=== PATIENT | male | born 1985 | race Caucasian/White ===

== ENCOUNTER 2016-08-09 10:54 | Emergency (ER) | payer SELFPAY ==
[~2016-08-09] VITALS: Ht 188 cm; Wt 90.7 kg
[2016-08-09 11:44] LABS: BASO # 0.1 x10^3/uL (0.0-0.2); BASO % 1 % (0-3); EOS # 0.1 x10^3/uL (0.0-0.7); EOS % 1 % (0-3); HEMATOCRIT 47.6 % (39.0-53.0); HEMOGLOBIN 16.3 g/dL (13.0-17.5); LYMPH # 1.5 x10^3/uL (1.0-4.8); LYMPH % 13 % (24-48); MEAN CORPUSCULAR HEMOGLOBIN 33 pg (25-35); MEAN CORPUSCULAR HGB CONC 34 g/dL (31-37); MEAN CORPUSCULAR VOLUME 96 fL (79-100); MONO # 0.9 x10^3/uL (0.0-1.1); MONO % 8 % (0-9); NEUT % 78 % (31-73); PLATELET COUNT 251 x10^3/uL (140-400); RED BLOOD COUNT 4.97 x10^6/uL (4.30-5.70); RED CELL DISTRIBUTION WIDTH 13.4 % (11.5-14.5); WHITE BLOOD COUNT 11.6 x10^3/uL (4.0-11.0)
[2016-08-09 11:53] LABS: ALBUMIN 4.1 g/dL (3.4-5.0); ALK PHOS 86 U/L (46-116); ALT (SGPT) 38 U/L (16-63); ANION GAP 8 (6-14); AST (SGOT) 49 U/L (15-37); BLOOD UREA NITROGEN 10 mg/dL (8-26); BUN/CREATININE RATIO 10 (6-20); CALCIUM 8.8 mg/dL (8.5-10.1); CARBON DIOXIDE 27 mmol/L (21-32); CHLORIDE 99 mmol/L (98-107); GFR 86.1; GLUCOSE 122 mg/dL (70-99); PHENY 12.3 mcg/mL (10.0-20.0); POTASSIUM 3.8 mmol/L (3.5-5.1); SODIUM 134 mmol/L (136-145); TOTAL BILIRUBIN 0.7 mg/dL (0.2-1.0); TOTAL PROTEIN 8.4 g/dL (6.4-8.2)
[2016-08-09] MEDS ORDERED: IV NORMAL SALINE 50ML 50 ML ONE (13:12)
[2016-08-09] MEDS ORDERED: FOSPHENYTOIN 500 MG/10 ML VIAL IV ONE (13:12)
[2016-08-09] MEDS: FOSPHENYTOIN 500 MG in IV NORMAL SALINE 50ML 50 ML IV ONE (13:15)
--- NOTE | 2016-08-09 14:15 | ACF ---
Admission Criteria Forms SEIZURE Clinical Indications for Admission to Inpatient Care (Place 'X' for any and all applicable criteria): Admission is indicated for seizure and ANY ONE of the following(1)(2)(3)(4)(5): [x]I. Inpatient admission required rather than observation care (Also use Seizure: Observation Care Criteria as appropriate) because of ANY ONE of the following: [ ]a) Altered mental status that is severe or persistent [ ]b) New focal neurologic deficit that is severe or persistent [ ]c) Metabolic disorder (eg, hypoglycemia, hyponatremia) that is severe or persistent [x]d) Recurrent seizure [ ]e) Outpatient antiseizure regimen cannot be established (eg , patient cannot tolerate medication, initiation requires inpatient care) [ ]f) Need for ongoing intravenous infusion of antiseizure medication [ ]g) Cardiac arrhythmias of immediate concern [ ]h) Cerebral bleeding, hydrocephalus, or vasospasm monitoring (14) [ ]i) Increased intracranial pressure or cerebral edema monitoring (15) [ ]j) Other treatment or monitoring requiring inpatient admission [ ]II. Status epilepticus [A] or repetitive seizures not controlled with emergent treatment (6)(8) [ ]III. Brain disorder (eg, tumor, edema, and hydrocephalus) that requiring monitoring or intervention available only at inpatient level of care. [ ]IV. Brain insult (eg, severe trauma, stroke, drug toxicity, or withdrawal) that requires monitoring or intervention available only at inpatient level of care (10)(11) Extended stay beyond goal length of stay may be needed for (22) [ ]a) Complications of status epilepticus [ ]b) Refractory status epilepticus [ ]c) Etiology-specific therapy for conditions such as [employer] infection, head injury,eclampsia, severe metabolic abnormalities, and brain tumor [ ]d) Residual neurologic damage, [ ]e) Initiation of significant change to anticonvulsant treatment [ ]f) Older patients (65 years or older) [ ]g) Patient requiring intubation (eg, to protect airway) The original [employer] content created by [employer] has been revised. The portions of the content which have been revised are identified through the use of italic text or in bold, and [facility] [employer] has neither reviewed nor approved the modified material. All other unmodified content is copyright [facility] [employer]. Please see references footnoted in the original [facility] edition 2016 Admission Criteria Met?: Yes COLLIN ETIENNE Aug 09, 2016 14:15
[2016-08-09 15:00] VITALS: BP 141/80
--- NOTE | 2016-08-09 15:19 | ED.ADGEN ---
Past History Past Medical History: Seizure Past Surgical History: No Surgical History Alcohol Use: None Drug Use: None Adult General Chief Complaint Chief Complaint Seizure episodes HPI HPI Patient is a 31-year-old male with history of seizure disorder who presents with multiple self-limited, brief grand mal seizures in the past 24 hours. She was on Dilantin 3 times daily and denies missed doses. Denies recent illness, alcohol and drug abuse. Reports being under increased workplace stress and possible dehydration. 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 He is currently asymptomatic in the emergency department. His epilepsy is managed by his PCP, Dr. Rousseau. He has not required dictation adjustment over 1 year. Review of Systems Review of Systems ROS as per HPI. Current Medications Current Medications Current Medications Medications (Trade) Dose Ordered Sig/Broderick Start Time Stop Time Status Last Admin Dose Admin Fosphenytoin Sodium (Cerebyx) 500 mg STK-MED ONCE 08/09/16 13:12 08/09/16 13:13 DC Fosphenytoin Sodium 500 mg/ Sodium Chloride 60 ml @ 240 mls/hr 1X ONCE 08/09/16 13:15 08/09/16 13:29 DC 08/09/16 13:15 240 MLS/HR Sodium Chloride (Iv Sodium Chloride 0.9% 50ml) 50 ml @ As Directed STK-MED ONCE 08/09/16 13:12 08/09/16 13:13 DC Allergies Allergies Allergies Coded Allergies Type Severity Reaction Last Updated Verified No Known Drug Allergies 08/09/16 No Physical Exam Physical Exam Constitutional: Well developed, well nourished, no acute distress, non-toxic appearance. HENT: Normocephalic, atraumatic, bilateral external ears normal, oropharynx moist, no oral exudates, nose normal. Eyes: PERRLA, EOMI. Neck: Normal range of motion. Cardiovascular:Heart rate regular rhythm, no murmur. Lungs & Thorax: Bilateral breath sounds clear to auscultation. Abdomen: Bowel sounds normal, soft, no tenderness. Skin: Warm, dry, no erythema. Back: No tenderness. Extremities: No tenderness. Neurologic: Alert and oriented X 3, normal motor function, normal sensory function, no focal deficits noted. Psychologic: Affect normal, judgement normal, mood normal. Current Patient Data Vital Signs Vital Signs Date Time Temp Pulse Resp B/P Pulse Ox O2 Delivery O2 Flow Rate FiO2 08/09/16 11:05 98.6 78 16 99 Room Air Lab Results Laboratory Tests Test 08/09/16 11:20 White Blood Count 11.6x10^3/uL (4.0-11.0) H Red Blood Count 4.97x10^6/uL (4.30-5.70) Hemoglobin 16.3g/dL (13.0-17.5) Hematocrit 47.6% (39.0-53.0) Mean Corpuscular Volume 96fL (79-100) Mean Corpuscular Hemoglobin 33pg (25-35) Mean Corpuscular Hemoglobin Concent 34g/dL (31-37) Red Cell Distribution Width 13.4% (11.5-14.5) Platelet Count 251x10^3/uL (140-400) Neutrophils (%) (Auto) 78% (31-73) H Lymphocytes (%) (Auto) 13% (24-48) L Monocytes (%) (Auto) 8% (0-9) Eosinophils (%) (Auto) 1% (0-3) Basophils (%) (Auto) 1% (0-3) Neutrophils # (Auto) 9.0x10^3uL (1.8-7.7) H Lymphocytes # (Auto) 1.5x10^3/uL (1.0-4.8) Monocytes # (Auto) 0.9x10^3/uL (0.0-1.1) Eosinophils # (Auto) 0.1x10^3/uL (0.0-0.7) Basophils # (Auto) 0.1x10^3/uL (0.0-0.2) Sodium Level 134mmol/L (136-145) L Potassium Level 3.8mmol/L (3.5-5.1) Chloride Level 99mmol/L (98-107) Carbon Dioxide Level 27mmol/L (21-32) Anion Gap 8 (6-14) Blood Urea Nitrogen 10mg/dL (8-26) Creatinine 1.0mg/dL (0.7-1.3) Estimated GFR (Cockcroft-Gault) 86.1 BUN/Creatinine Ratio 10 (6-20) Glucose Level 122mg/dL (70-99) H Calcium Level 8.8mg/dL (8.5-10.1) Total Bilirubin 0.7mg/dL (0.2-1.0) Aspartate Amino Transferase (AST) 49U/L (15-37) H Alanine Aminotransferase (ALT) 38U/L (16-63) Alkaline Phosphatase 86U/L (46-116) Total Protein 8.4g/dL (6.4-8.2) H Albumin 4.1g/dL (3.4-5.0) Albumin/Globulin Ratio 1.0 (1.0-1.7) Phenytoin (Dilantin) Level 12.3mcg/mL (10.0-20.0) Phenytoin Last Dose Date Unk Phenytoin Last Dose Time Unk EKG EKG ]KG: Radiology/Procedures Radiology/Procedures [] Impressions: Multiple seizures Course & Med Decision Making Course & Med Decision Making Pertinent Labs and Imaging studies reviewed. (See chart for details) [Patient therapeutic on Dilantin. Additional Dilantin given. Labs are logic evaluation otherwise normal. Recommendations are to continue Dilantin follow-up with PCP and/or neurologist for further management. Courtesy work note provided. Return precautions reviewed.] Final Impression Final Impression [#1 seizure disorder] Problems: Dragon Disclaimer Dragon Disclaimer This electronic medical record was generated, in whole or in part, using a voice recognition dictation system. CHRISTOPHER MAYO DO Aug 09, 2016 15:18
== END 2016-08-09 15:10 | disposition home or self-care (01) ==
LOC: ER 10:54
DX: G40.909 Epilepsy, unspecified, not intractable, without status epilepticus (principal)
CPT/HCPCS: 36415; 80053; 80185; 85027; 96365; 99284; Q2009

== ENCOUNTER → 2016-09-05 | Outpatient (CLI) | payer SELFPAY ==
[2016-08-09 15:00] VITALS: BP 141/80
[2016-09-05 10:49] LABS: PHENY 11.2 mcg/mL (10.0-20.0)
== END | disposition home or self-care (01) ==
LOC: LAB 09:46
PROVIDERS: ATTEND Psychiatry & Neurology Neurology
DX: R56.9 Unspecified convulsions (principal)
CPT/HCPCS: 36415; 80185

== ENCOUNTER 2016-10-24 23:24 | Emergency (ER) | payer SELFPAY ==
[~2016-10-24] VITALS: Ht 188 cm; Wt 131.5 kg
--- NOTE | 2016-10-24 23:52 | PHYS DOC ---
General Chief Complaint: SEIZURE Stated Complaint: SEIZURE Time Seen by MD: 23:26 Source: patient, family Exam Limitations: no limitations Problems: History of Present Illness Initial Comments Patient is a 31-year-old male brought to the ED by his mom for breakthrough seizure. Patient has history of epilepsy, he has been stable on his seizure medications for several years before experiencing a breakthrough seizure August 09 at this year. Patient was evaluated in the emergency department found to be subtherapeutic on Dilantin, he was discharged home to follow up with his doctor as an outpatient. Patient follows with Dr. Rousseau as his primary care physician, Dr. Rousseau had been managing his seizure medications however he was referred to Dr. Hoyt neurologist after his last breakthrough seizure. After evaluation Dr. Hoyt increased his Dilantin to 1000 mg daily at bedtime. No further seizures or other issues up until this evening. Patient does admit that he had basically a missed dose of Dilantin night before last. He took the dose much later than normal and says in the past even early or late dosing of Dilantin because breakthrough seizures. His mom says that at 7 PM tonight the patient has small seizure and at 10:30 while sleeping he had a grand mal. The patient denies incontinence he denies headache or confusion no muscle aches. He denies recent illness no focal weakness or travel insect or tick bites he denies alcohol and drug abuse. In the emergency department no headache or body aches asymptomatic. Timing/Duration: other Severity: moderate Modifying Factors: improves with medication Associated Symptoms: seizure Allergies: Coded Allergies: No Known Drug Allergies (Unverified , 08/09/16) Past Medical History Medical History: other (seizures, hydrocephalus, hypertension) Surgical History: noncontributory Social History Smoker: quit greater than 1 year Alcohol: none Drugs: none Review of Systems Constitutional: denies chills, denies diaphoresis, denies fever EENTM: denies eye pain, denies tearing, denies ear pain, denies ear discharge, denies nose pain, denies throat pain, denies mouth pain Respiratory: denies cough, denies shortness of breath, denies wheezing Cardiovascular: denies chest pain, denies palpitations Gastrointestinal: denies abdominal pain, denies nausea, denies vomiting Genitourinary: denies frequency, denies hematuria Musculoskeletal: denies back pain, denies joint swelling, denies neck pain Psychiatric/Neurological: see HPI Physical Exam General Appearance: WD/WN, no apparent distress, obese Eyes: bilateral eye normal inspection, bilateral eye PERRL, bilateral eye EOMI Ear, Nose, Throat: hearing grossly normal, normal ENT inspection, normal pharynx Neck: non-tender, supple Respiratory: normal breath sounds, no respiratory distress Cardiovascular: normal peripheral pulses, regular rate, rhythm Back: no CVA tenderness, no vertebral tenderness Extremities: non-tender, normal inspection 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 No new or changing symptoms. Pt/mom express agreement/understanding with treatment plan. Departure Time of Disposition: 00:26 Disposition: 01 HOME, SELF-CARE Diagnosis: Breakthru Seizure Condition: STABLE Patient Instructions: Seizure, Adult, [id number] Additional Instructions: Rest, no strenuous activity. No driving, operating machinery, or swimming alone until cleared by your doctor. Continue current meds. Aggressive hydration with gatorade, water. Follow up with Dr Hoyt or Dr Stevenson in 2-3 days for recheck. Return to ED with new or changing symptoms. IRENA BELTRE DO Oct 24, 2016 23:52
[2016-10-24] MEDS ORDERED: FOSPHENYTOIN 500 MG/10 ML VIAL IV ONE (23:57)
[2016-10-24] MEDS ORDERED: IV NORMAL SALINE 50ML 50 ML ONE (23:57)
[2016-10-25] MEDS ORDERED: FOSPHENYTOIN 500 MG in IV NORMAL SALINE 50ML 50 ML IV ONE ×2
[2016-10-25 00:06] LABS: BASO # 0.1 x10^3/uL (0.0-0.2); BASO % 1 % (0-3); EOS # 0.3 x10^3/uL (0.0-0.7); EOS % 3 % (0-3); HEMATOCRIT 41.2 % (39.0-53.0); HEMOGLOBIN 14.8 g/dL (13.0-17.5); LYMPH % 20 % (24-48); MEAN CORPUSCULAR HEMOGLOBIN 33 pg (25-35); MEAN CORPUSCULAR HGB CONC 36 g/dL (31-37); MEAN CORPUSCULAR VOLUME 93 fL (79-100); MONO # 1.1 x10^3/uL (0.0-1.1); MONO % 12 % (0-9); NEUT # 6.4 x10^3uL (1.8-7.7); NEUT % 65 % (31-73); PLATELET COUNT 211 x10^3/uL (140-400); RED BLOOD COUNT 4.42 x10^6/uL (4.30-5.70); RED CELL DISTRIBUTION WIDTH 13.3 % (11.5-14.5); WHITE BLOOD COUNT 9.9 x10^3/uL (4.0-11.0)
[2016-10-25 00:17] LABS: ANION GAP 8 (6-14); BLOOD UREA NITROGEN 8 mg/dL (8-26); CALCIUM 8.5 mg/dL (8.5-10.1); CARBON DIOXIDE 29 mmol/L (21-32); CHLORIDE 99 mmol/L (98-107); GFR 86.1; GLUCOSE 124 mg/dL (70-99); POTASSIUM 3.8 mmol/L (3.5-5.1); SODIUM 136 mmol/L (136-145)
[2016-10-25 00:27] VITALS: BP 150/87
== END 2016-10-25 00:40 | disposition home or self-care (01) ==
LOC: ER 23:24
DX: G40.89 Other seizures (principal); I10 Essential (primary) hypertension; Z87.891 Personal history of nicotine dependence
CPT/HCPCS: 36415; 80048; 80185; 85027; 96365; 99284; Q2009

== ENCOUNTER 2017-09-18 13:44 | Emergency (ER) | payer SELFPAY ==
[~2017-09-18] VITALS: Ht 188 cm; Wt 130.0 kg
[2017-09-18 14:31] LABS: BASO # 0.1 x10^3/uL (0.0-0.2); BASO % 1 % (0-3); EOS # 0.1 x10^3/uL (0.0-0.7); EOS % 1 % (0-3); HEMATOCRIT 46.5 % (39.0-53.0); HEMOGLOBIN 15.9 g/dL (13.0-17.5); LYMPH # 1.6 x10^3/uL (1.0-4.8); LYMPH % 12 % (24-48); MEAN CORPUSCULAR HEMOGLOBIN 33 pg (25-35); MEAN CORPUSCULAR HGB CONC 34 g/dL (31-37); MEAN CORPUSCULAR VOLUME 96 fL (79-100); MONO # 0.9 x10^3/uL (0.0-1.1); MONO % 7 % (0-9); NEUT # 10.4 x10^3uL (1.8-7.7); NEUT % 79 % (31-73); PLATELET COUNT 266 x10^3/uL (140-400); RED BLOOD COUNT 4.85 x10^6/uL (4.30-5.70); WHITE BLOOD COUNT 13.2 x10^3/uL (4.0-11.0)
[2017-09-18 14:40] LABS: ALBUMIN 3.8 g/dL (3.4-5.0); ALBUMIN/GLOBULIN RATIO 0.9 (1.0-1.7); ALK PHOS 81 U/L (46-116); ALT (SGPT) 36 U/L (16-63); ANION GAP 10 (6-14); AST (SGOT) 33 U/L (15-37); BLOOD UREA NITROGEN 9 mg/dL (8-26); BUN/CREATININE RATIO 9 (6-20); CALCIUM 8.7 mg/dL (8.5-10.1); CARBON DIOXIDE 27 mmol/L (21-32); CHLORIDE 99 mmol/L (98-107); GFR 85.5; GLUCOSE 136 mg/dL (70-99); PHENY 14.4 mcg/mL (10.0-20.0); POTASSIUM 3.9 mmol/L (3.5-5.1); SODIUM 136 mmol/L (136-145); TOTAL BILIRUBIN 0.5 mg/dL (0.2-1.0); TOTAL PROTEIN 7.9 g/dL (6.4-8.2)
--- NOTE | 2017-09-18 14:46 | PHYS DOC ---
Past History Past Medical History: Seizure, Other Past Surgical History: No Surgical History Alcohol Use: None Drug Use: None Adult General Chief Complaint Chief Complaint: SEIZURE HPI HPI 32-year-old male resents with seizures at home. The patient has known seizures. He is on Dilantin. His family and the patient reported he had 3 seizures yesterday and 3 today. These seizures usually have hand movement, but sometimes mild tonic-clonic movement. He is postictal for a period of time and then returns to baseline. They brought him today because they were concerned he would continue to have them and that his phenytoin level is not adequate. It was increased about 3 months ago. He has been outside a lot and has a lot of sun exposure. He is trying to stay hydrated. Denies alcohol or drug use. He has no fever or chills. He has no other complaints. Review of Systems Review of Systems Constitutional: Denies fever or chills [] Eyes: Denies change in visual acuity, redness, or eye pain [] HENT: Denies nasal congestion or sore throat [] Respiratory: Denies cough or shortness of breath [] Cardiovascular: No additional information not addressed in HPI [] GI: Denies abdominal pain, nausea, vomiting, bloody stools or diarrhea [] : Denies dysuria or hematuria [] Musculoskeletal: Denies back pain or joint pain [] Integument: Denies rash or skin lesions, significant sun exposure [] Neurologic: Denies headache, focal weakness or sensory changes, 3 seizures today [] Endocrine: Denies polyuria or polydipsia [] All other systems were reviewed and found to be within normal limits, except as documented in this note. Allergies Allergies Allergies Coded Allergies Type Severity Reaction Last Updated Verified No Known Drug Allergies 08/09/16 No Physical Exam Physical Exam Constitutional: Well developed, well nourished, no acute distress, non-toxic appearance. [] HENT: Normocephalic, atraumatic, bilateral external ears normal, oropharynx moist, no oral exudates, nose normal. [] Eyes: PERRLA, EOMI, conjunctiva normal, no discharge. [] Neck: Normal range of motion, no tenderness, supple, no stridor. [] Cardiovascular:Heart rate regular rhythm, no murmur [] Lungs & Thorax: Bilateral breath sounds clear to auscultation [] Abdomen: Bowel sounds normal, soft, no tenderness, no masses, no pulsatile masses. [] Skin: Warm, dry, no erythema, no rash. darkly tanned skin [] Back: No tenderness, no CVA tenderness. [] Extremities: No tenderness, no cyanosis, no clubbing, ROM intact, no edema. [] Neurologic: Alert and oriented X 3, normal motor function, normal sensory function, no focal deficits noted. [] Psychologic: Affect normal, judgement normal, mood normal. [] Current Patient Data Lab Results Laboratory Tests Test 09/18/17 13:55 White Blood Count 13.2 x10^3/uL (4.0-11.0) H Red Blood Count 4.85 x10^6/uL (4.30-5.70) Hemoglobin 15.9 g/dL (13.0-17.5) Hematocrit 46.5 % (39.0-53.0) Mean Corpuscular Volume 96 fL (79-100) Mean Corpuscular Hemoglobin 33 pg (25-35) Mean Corpuscular Hemoglobin Concent 34 g/dL (31-37) Red Cell Distribution Width 14.0 % (11.5-14.5) Platelet Count 266 x10^3/uL (140-400) Neutrophils (%) (Auto) 79 % (31-73) H Lymphocytes (%) (Auto) 12 % (24-48) L Monocytes (%) (Auto) 7 % (0-9) Eosinophils (%) (Auto) 1 % (0-3) Basophils (%) (Auto) 1 % (0-3) Neutrophils # (Auto) 10.4 x10^3uL (1.8-7.7) H Lymphocytes # (Auto) 1.6 x10^3/uL (1.0-4.8) Monocytes # (Auto) 0.9 x10^3/uL (0.0-1.1) Eosinophils # (Auto) 0.1 x10^3/uL (0.0-0.7) Basophils # (Auto) 0.1 x10^3/uL (0.0-0.2) Sodium Level 136 mmol/L (136-145) Potassium Level 3.9 mmol/L (3.5-5.1) Chloride Level 99 mmol/L (98-107) Carbon Dioxide Level 27 mmol/L (21-32) Anion Gap 10 (6-14) Blood Urea Nitrogen 9 mg/dL (8-26) Creatinine 1.0 mg/dL (0.7-1.3) Estimated GFR (Cockcroft-Gault) 85.5 BUN/Creatinine Ratio 9 (6-20) Glucose Level 136 mg/dL (70-99) H Calcium Level 8.7 mg/dL (8.5-10.1) Total Bilirubin 0.5 mg/dL (0.2-1.0) Aspartate Amino Transferase (AST) 33 U/L (15-37) Alanine Aminotransferase (ALT) 36 U/L (16-63) Alkaline Phosphatase 81 U/L (46-116) Total Protein 7.9 g/dL (6.4-8.2) Albumin 3.8 g/dL (3.4-5.0) Albumin/Globulin Ratio 0.9 (1.0-1.7) L Phenytoin (Dilantin) Level 14.4 mcg/mL (10.0-20.0) Phenytoin Last Dose Date 09/17/17 Phenytoin Last Dose Time 1700 EKG EKG [] Radiology/Procedures Radiology/Procedures [] Course & Med Decision Making Course & Med Decision Making The patient's labs are unremarkable. His phenytoin is therapeutic at 14.4. I discussed the case with Dr. Hoyt and he recommended loading the patient with 1 g of Keppra IV in the ED followed by a prescription for 500 twice a day by mouth at home. He would like to see the patient Monday of this week. Dragon Disclaimer Dragon Disclaimer This electronic medical record was generated, in whole or in part, using a voice recognition dictation system. Departure Departure: Referrals: LALO JESUS MD (PCP) Scripts Levetiracetam (KEPPRA) 500 Mg Tablet 1 TAB PO BID, #60 TAB 5 Refills Prov: CHRISTOPHER YAO DO 09/18/17 CHRISTOPHER YAO DO September 18, 2017 14:46
[2017-09-18] MEDS ORDERED: IV NORMAL SALINE 1,000ML 1,000 ML IV ONE (15:00)
[2017-09-18 16:36] VITALS: BP 151/82
[2017-09-18] MEDS ORDERED: LEVE500T56 PO (16:48)
[2017-09-18] MEDS ORDERED: levETIRAcetam 500 MG TABLET PO STA (16:58)
== END 2017-09-18 17:00 | disposition home or self-care (01) ==
LOC: ER 13:44
DX: R56.9 Unspecified convulsions (principal)
CPT/HCPCS: 36415; 80053; 80185; 85025; 96365; 99284; J1953; J7030

== ENCOUNTER 2017-12-08 23:02 | Emergency (ER) | payer SELFPAY ==
[~2017-12-08] VITALS: Ht 188 cm; Wt 140.3 kg
[~2017-12-08 23:02] MED LIST: LEVE500T56 PO
[2017-12-09] MEDS ORDERED: IV NORMAL SALINE 1,000ML 1,000 ML IV ONE
[2017-12-09 00:27] LABS: BASO # 0.1 x10^3/uL (0.0-0.2); BASO % 1 % (0-3); EOS # 0.2 x10^3/uL (0.0-0.7); EOS % 3 % (0-3); HEMATOCRIT 42.6 % (39.0-53.0); HEMOGLOBIN 14.9 g/dL (13.0-17.5); LYMPH # 1.8 x10^3/uL (1.0-4.8); LYMPH % 19 % (24-48); MEAN CORPUSCULAR HEMOGLOBIN 33 pg (25-35); MEAN CORPUSCULAR HGB CONC 35 g/dL (31-37); MEAN CORPUSCULAR VOLUME 96 fL (79-100); MONO % 10 % (0-9); NEUT # 6.4 x10^3uL (1.8-7.7); NEUT % 67 % (31-73); PLATELET COUNT 209 x10^3/uL (140-400); RED BLOOD COUNT 4.45 x10^6/uL (4.30-5.70); RED CELL DISTRIBUTION WIDTH 13.5 % (11.5-14.5); WHITE BLOOD COUNT 9.5 x10^3/uL (4.0-11.0)
[2017-12-09 00:43] LABS: ALBUMIN 3.6 g/dL (3.4-5.0); ALBUMIN/GLOBULIN RATIO 0.9 (1.0-1.7); ALK PHOS 74 U/L (46-116); ALT (SGPT) 27 U/L (16-63); ANION GAP 11 (6-14); AST (SGOT) 23 U/L (15-37); BLOOD UREA NITROGEN 9 mg/dL (8-26); BUN/CREATININE RATIO 10 (6-20); CALCIUM 8.8 mg/dL (8.5-10.1); CARBON DIOXIDE 26 mmol/L (21-32); CHLORIDE 101 mmol/L (98-107); CREATININE 0.9 mg/dL (0.7-1.3); GFR 96.6; GLUCOSE 135 mg/dL (70-99); PHENY 20.3 mcg/mL (10.0-20.0); POTASSIUM 3.5 mmol/L (3.5-5.1); SODIUM 138 mmol/L (136-145); TOTAL BILIRUBIN 0.3 mg/dL (0.2-1.0); TOTAL PROTEIN 7.6 g/dL (6.4-8.2)
[2017-12-09 01:19] VITALS: BP 132/68
[2017-12-09] MEDS ORDERED: levETIRAcetam 500 MG TABLET PO ONE ×2 (01:21→01:30)
--- NOTE | 2017-12-09 01:40 | PHYS DOC ---
Past History Past Medical History: Seizure, Other Past Surgical History: No Surgical History Alcohol Use: None Drug Use: None Adult General Chief Complaint Chief Complaint: SEIZURE HPI HPI 32-year-old male presents after seizure at home. The patient has a history of seizure disorder. He has not had a seizure since August, 3 months ago. The patient was just sitting at home when he began to feel funny. He does remember anything after that until he woke up with his parents starting to him. Parents who witnessed the seizure stated that he had a petit mal seizure which is typical for him. It lasted for 2-3 minutes at most. The patient did not have any loss of bowel or bladder. He did not bite his tongue. He had a postictal period for several minutes, but is back at baseline now. The patient states feeling completely normal. There neurologist recommended that they come to the emergency room if he had a seizure for labs and notes with he came tonight. Patient has no other complaints. He denies recent head injury, fever or chills. Review of Systems Review of Systems Constitutional: Denies fever or chills [] Eyes: Denies change in visual acuity, redness, or eye pain [] HENT: Denies nasal congestion or sore throat [] Respiratory: Denies cough or shortness of breath [] Cardiovascular: No additional information not addressed in HPI [] GI: Denies abdominal pain, nausea, vomiting, bloody stools or diarrhea [] : Denies dysuria or hematuria [] Musculoskeletal: Denies back pain or joint pain [] Integument: Denies rash or skin lesions [] Neurologic: Denies headache, focal weakness or sensory changes [] Endocrine: Denies polyuria or polydipsia [] All other systems were reviewed and found to be within normal limits, except as documented in this note. Current Medications Current Medications Current Medications Medications (Trade) Dose Ordered Sig/Broderick Start Time Stop Time Status Last Admin Dose Admin Levetiracetam (Keppra) 500 mg STK-MED ONCE 12/09/17 01:21 12/09/17 01:22 DC Sodium Chloride 1,000 ml @ 1,000 mls/hr 1X ONCE 12/09/17 00:00 12/09/17 01:00 DC 12/09/17 00:08 1,000 MLS/HR Allergies Allergies Allergies Coded Allergies Type Severity Reaction Last Updated Verified No Known Drug Allergies 08/09/16 No Physical Exam Physical Exam Constitutional: Well developed, well nourished, no acute distress, non-toxic appearance. [] HENT: Normocephalic, atraumatic, bilateral external ears normal, oropharynx moist, no oral exudates, nose normal. [] Eyes: PERRLA, EOMI, conjunctiva normal, no discharge. [] Neck: Normal range of motion, no tenderness, supple, no stridor. [] Cardiovascular:Heart rate regular rhythm, no murmur [] Lungs & Thorax: Bilateral breath sounds clear to auscultation [] Abdomen: Bowel sounds normal, soft, no tenderness, no masses, no pulsatile masses. [] Skin: Warm, dry, no erythema, no rash. [] Back: No tenderness, no CVA tenderness. [] Extremities: No tenderness, no cyanosis, no clubbing, ROM intact, no edema. [] Neurologic: Alert and oriented X 3, normal motor function, normal sensory function, no focal deficits noted. [] Psychologic: Affect normal, judgement normal, mood normal. [] Current Patient Data Lab Results Laboratory Tests Test 12/08/17 23:59 White Blood Count 9.5 x10^3/uL (4.0-11.0) Red Blood Count 4.45 x10^6/uL (4.30-5.70) Hemoglobin 14.9 g/dL (13.0-17.5) Hematocrit 42.6 % (39.0-53.0) Mean Corpuscular Volume 96 fL (79-100) Mean Corpuscular Hemoglobin 33 pg (25-35) Mean Corpuscular Hemoglobin Concent 35 g/dL (31-37) Red Cell Distribution Width 13.5 % (11.5-14.5) Platelet Count 209 x10^3/uL (140-400) Neutrophils (%) (Auto) 67 % (31-73) Lymphocytes (%) (Auto) 19 % (24-48) L Monocytes (%) (Auto) 10 % (0-9) H Eosinophils (%) (Auto) 3 % (0-3) Basophils (%) (Auto) 1 % (0-3) Neutrophils # (Auto) 6.4 x10^3uL (1.8-7.7) Lymphocytes # (Auto) 1.8 x10^3/uL (1.0-4.8) Monocytes # (Auto) 1.0 x10^3/uL (0.0-1.1) Eosinophils # (Auto) 0.2 x10^3/uL (0.0-0.7) Basophils # (Auto) 0.1 x10^3/uL (0.0-0.2) Sodium Level 138 mmol/L (136-145) Potassium Level 3.5 mmol/L (3.5-5.1) Chloride Level 101 mmol/L (98-107) Carbon Dioxide Level 26 mmol/L (21-32) Anion Gap 11 (6-14) Blood Urea Nitrogen 9 mg/dL (8-26) Creatinine 0.9 mg/dL (0.7-1.3) Estimated GFR (Cockcroft-Gault) 96.6 BUN/Creatinine Ratio 10 (6-20) Glucose Level 135 mg/dL (70-99) H Calcium Level 8.8 mg/dL (8.5-10.1) Total Bilirubin 0.3 mg/dL (0.2-1.0) Aspartate Amino Transferase (AST) 23 U/L (15-37) Alanine Aminotransferase (ALT) 27 U/L (16-63) Alkaline Phosphatase 74 U/L (46-116) Total Protein 7.6 g/dL (6.4-8.2) Albumin 3.6 g/dL (3.4-5.0) Albumin/Globulin Ratio 0.9 (1.0-1.7) L Phenytoin (Dilantin) Level 20.3 mcg/mL (10.0-20.0) H Phenytoin Last Dose Date 12/08/17 Phenytoin Last Dose Time 1700 EKG EKG [] Radiology/Procedures Radiology/Procedures [] Course & Med Decision Making Course & Med Decision Making Pertinent Labs and Imaging studies reviewed. (See chart for details) The patient toy and level is therapeutic. The rest of his labs are unremarkable. His Keppra level will not come back tonight. I will give him an additional 500 mg dose of Keppra in the ED and advised to continue his normal regimen of medications. He will follow-up with his neurologist. If the patient has an additional seizure he'll come back to the emergency room. He is stable for discharge at this time. [] Dragon Disclaimer Dragon Disclaimer This electronic medical record was generated, in whole or in part, using a voice recognition dictation system. Departure Departure: Referrals: LALO JESUS MD (PCP) CHRISTOPHER YAO DO Dec 09, 2017 01:40
== END 2017-12-09 01:45 | disposition home or self-care (01) ==
LOC: ER 23:02
DX: G40.409 Other generalized epilepsy and epileptic syndromes, not intractable, without status epilepticus (principal)
CPT/HCPCS: 80053; 80185; 85025; 99284-25; J7030

== ENCOUNTER 2019-08-14 15:40 | Emergency (ER) | payer SELFPAY ==
[~2019-08-14] VITALS: Ht 188 cm; Wt 145.5 kg
--- NOTE | 2019-08-14 15:56 | PHYS DOC ---
Past History Past Medical History: Hypertension, Seizure, Other Past Surgical History: No Surgical History Smoking: Quit Greater Than 1 Year Alcohol Use: None Drug Use: None General Adult EDM: Chief Complaint: SEIZURE HPI: HPI: 34-year-old male with past medical history of seizure disorder who is currently treated with Keppra presents with report of breakthrough seizure while at work at the local [employer] [facility]. Patient reports he does recall having some aura that he was about to have a seizure. Patient reports typically seizures occur when he has been overworking or not sleeping. Patient reports he does not recall the rest of the events until he woke up in the ambulance being transported to the hospital. Per EMS patient had [id number] seizure which was witnessed that lasted several minutes. Patient was immediately postictal but has since improved mentation. Patient denies any complaint at this time. Denies fever or chills. Denies chest pain. Denies cough or shortness of air. Denies trauma. Denies nausea or vomiting. Patient does report compliance with his Keppra and is due to follow with his neurologist Dr. Hoyt. Review of Systems: Review of Systems: Constitutional: Denies fever or chills Eyes: Denies redness or eye pain HENT: Denies nasal congestion or epistaxis Respiratory: Denies cough or shortness of breath Cardiovascular: Denies chest pain or palpitations GI: Denies abdominal pain, nausea, or vomiting : Denies dysuria or hematuria Musculoskeletal: Denies neck pain or joint pain Integument: Denies rash or skin lesions Neurologic: Denies headache, focal weakness or sensory changes; reports seizure- like activity Complete systems were reviewed and found to be within normal limits, except as documented in this note. Allergies: Allergies: Allergies Coded Allergies Type Severity Reaction Last Updated Verified No Known Drug Allergies 08/09/16 No Physical Exam: PE: Constitutional: Well developed, well nourished, no acute distress, non-toxic appearance HENT: Normocephalic, atraumatic, oropharynx moist Eyes: PERRL, EOMI, conjunctiva normal, no discharge Neck: Normal range of motion, no tenderness, supple, no meningeal signs Cardiovascular: Heart rate tachycardic, regular rhythm Lungs & Thorax: Bilateral breath sounds clear to auscultation, no wheezing Abdomen: Soft, no tenderness Skin: Warm, dry, no erythema, no rash Back: No tenderness, no CVA tenderness Extremities: No tenderness, ROM intact, no edema Neurologic: Alert and oriented X 3, normal motor function, normal sensory function, no focal deficits noted Psychologic: Affect normal, judgment normal EKG: EKG: [] Radiology/Procedures: Radiology/Procedures: [] Course & Med Decision Making: Course & Med Decision Making Pertinent Lab studies reviewed. (See chart for details) Patient presents via EMS with report of witnessed tonic-clonic seizure while at his place of employment. Patient does have history of seizures for which he is compliant taking Keppra. Patient is due to follow with his neurologist. Patient neurologically intact upon arrival. Denies any complaint. Physical exam unremarkable. IV fluid hydration provided. Labs obtained and posted to chart. CPK slightly elevated. Lactic acid WNL. A Keppra level was obtained and pending. Ordered for patient to have upon follow up with his neurologist. Patient monitored in emergency department without further seizure-like activity. Patient stable for discharge with outpatient follow-up with PCP/neurologist. Discussed findings and plan with patient, who acknowledges understanding and agreement. Ravin Disclaimer: Ravin Disclaimer: This electronic medical record was generated, in whole or in part, using a voice recognition dictation system. Departure Departure: Impression: Primary Impression: Breakthrough seizure Disposition: 01 HOME, SELF-CARE Condition: STABLE Referrals: LALO JESUS MD (PCP) REBEKAH HOYT MD Patient Instructions: Seizure, Adult, [id number] Additional Instructions: Please refrain from driving or operating any machinery until you have been seizure free for at least 6 months or until cleared by your primary care physician and/or neurologist JAKBO STANFORD DO Aug 14, 2019 15:56
[2019-08-14] MEDS: IV NORMAL SALINE 1,000ML 1,000 ML IV ONE (16:04)
[2019-08-14 16:26] LABS: BASO # 0.1 x10^3/uL (0.0-0.2); BASO % 1 % (0-3); EOS # 0.2 x10^3/uL (0.0-0.7); EOS % 3 % (0-3); HEMATOCRIT 44.3 % (39.0-53.0); HEMOGLOBIN 15.3 g/dL (13.0-17.5); LYMPH # 2.5 x10^3/uL (1.0-4.8); LYMPH % 27 % (24-48); MEAN CORPUSCULAR HEMOGLOBIN 34 pg (25-35); MEAN CORPUSCULAR HGB CONC 35 g/dL (31-37); MEAN CORPUSCULAR VOLUME 97 fL (79-100); MONO # 1.2 x10^3/uL (0.0-1.1); MONO % 13 % (0-9); NEUT # 5.2 x10^3uL (1.8-7.7); NEUT % 56 % (31-73); PLATELET COUNT 223 x10^3/uL (140-400); RED BLOOD COUNT 4.57 x10^6/uL (4.30-5.70); RED CELL DISTRIBUTION WIDTH 13.5 % (11.5-14.5); WHITE BLOOD COUNT 9.2 x10^3/uL (4.0-11.0)
[2019-08-14 16:31] LABS: CALCIUM 8.9 mg/dL (8.5-10.1); CREATININE 0.8 mg/dL (0.7-1.3); GFR 109.4; POTASSIUM 3.5 mmol/L (3.5-5.1)
[2019-08-14 16:38] LABS: ALBUMIN 3.9 g/dL (3.4-5.0); MAGNESIUM 1.9 mg/dL (1.8-2.4); TOTAL BILIRUBIN 0.4 mg/dL (0.2-1.0); TOTAL PROTEIN 7.8 g/dL (6.4-8.2)
[2019-08-14 16:45] VITALS: BP 167/89
== END 2019-08-14 16:45 | disposition home or self-care (01) ==
LOC: ER 15:40
DX: G40.909 Epilepsy, unspecified, not intractable, without status epilepticus (principal); I10 Essential (primary) hypertension; Z87.891 Personal history of nicotine dependence
CPT/HCPCS: 80053; 82550; 83605; 83735; 85025; 99283; J7030

== ENCOUNTER 2019-08-30 14:54 | Emergency (ER) | payer SELFPAY ==
[~2019-08-30] VITALS: Ht 188 cm; Wt 145.5 kg
[2019-08-30] MEDS ORDERED: levETIRAcetam 500 MG TABLET PO STA (15:18)
[2019-08-30 15:24] LABS: BASO # 0.1 x10^3/uL (0.0-0.2); BASO % 1 % (0-3); EOS # 0.1 x10^3/uL (0.0-0.7); EOS % 2 % (0-3); HEMATOCRIT 44.5 % (39.0-53.0); HEMOGLOBIN 15.2 g/dL (13.0-17.5); LYMPH # 1.9 x10^3/uL (1.0-4.8); LYMPH % 21 % (24-48); MEAN CORPUSCULAR HEMOGLOBIN 33 pg (25-35); MEAN CORPUSCULAR HGB CONC 34 g/dL (31-37); MEAN CORPUSCULAR VOLUME 98 fL (79-100); MONO # 0.8 x10^3/uL (0.0-1.1); MONO % 9 % (0-9); NEUT % 67 % (31-73); PLATELET COUNT 234 x10^3/uL (140-400); RED BLOOD COUNT 4.56 x10^6/uL (4.30-5.70); RED CELL DISTRIBUTION WIDTH 13.7 % (11.5-14.5)
[2019-08-30 15:31] LABS: CREATININE 0.9 mg/dL (0.7-1.3); GFR 95.5; POTASSIUM 3.9 mmol/L (3.5-5.1)
[2019-08-30 15:38] LABS: ALBUMIN 4.3 g/dL (3.4-5.0); ALBUMIN/GLOBULIN RATIO 1.1 (1.0-1.7); PHENY 24.4 mcg/mL (10.0-20.0); TOTAL BILIRUBIN 0.7 mg/dL (0.2-1.0); TOTAL PROTEIN 8.2 g/dL (6.4-8.2)
--- NOTE | 2019-08-30 16:38 | PHYS DOC ---
Past History Past Medical History: Hypertension, Seizure, Other Past Surgical History: No Surgical History Smoking: Quit Greater Than 1 Year Alcohol Use: None Drug Use: None General Adult EDM: Chief Complaint: SEIZURE HPI: HPI: 34-year-old male past medical history significant for hypertension and seizure disorder presents to the ED after patient had a witnessed seizure at work. Patient states he had an aura and felt as if a seizure was coming, sat down on the floor. Seizure was brief lasted for less than 10 minutes, no head injury. States he takes Dilantin 500 mg daily and Keppra 500 mg twice daily-compliant with his medications. His last seizure was 2 weeks ago. States working out in the heat provokes his seizures, admits to poor water intake. No alcohol or drug use. Review of systems: Denies associated fever, chills, cough, chest pain, nausea, vomiting, blurry vision, neck stiffness or pain, sore throat, headache, neuro deficits, bruising,, urinary bowel retention or incontinence, leg swelling or rash. Current Medications: Current Meds: Current Medications Medications (Trade) Dose Ordered Sig/Broderick Start Time Stop Time Status Last Admin Dose Admin Levetiracetam (Keppra) 1,000 mg 1X STAT 08/30/19 15:18 08/30/19 15:19 DC 08/30/19 15:18 1,000 MG Allergies: Allergies: Allergies Coded Allergies Type Severity Reaction Last Updated Verified No Known Drug Allergies 08/09/16 No Physical Exam: PE: Constitutional: Well developed, well nourished, no acute distress, non-toxic appearance. No signs of head trauma HENT: Normocephalic, atraumatic, bilateral external ears normal, oropharynx moist, no oral exudates, nose normal, no oral lacerations/lesions/tongue lacerations Eyes: PERRLA, EOMI, conjunctiva normal, no discharge. Neck: Normal range of motion, no tenderness, supple, no stridor. Cardiovascular:Heart rate regular rhythm, no murmur Lungs & Thorax: Bilateral breath sounds clear to auscultation Abdomen: Bowel sounds normal, soft, no tenderness, no masses, no pulsatile masses. Skin: Warm, dry, no erythema, no rash. Back: No tenderness, no CVA tenderness. Extremities: No tenderness, no cyanosis, no clubbing, ROM intact, no edema. Neurologic: Alert and oriented X 3, normal motor function, normal sensory function, no focal deficits noted. Psychologic: Affect normal, judgement normal, mood normal. Current Patient Data: Labs: Laboratory Tests Test 08/30/19 15:04 White Blood Count 9.0 x10^3/uL (4.0-11.0) Red Blood Count 4.56 x10^6/uL (4.30-5.70) Hemoglobin 15.2 g/dL (13.0-17.5) Hematocrit 44.5 % (39.0-53.0) Mean Corpuscular Volume 98 fL (79-100) Mean Corpuscular Hemoglobin 33 pg (25-35) Mean Corpuscular Hemoglobin Concent 34 g/dL (31-37) Red Cell Distribution Width 13.7 % (11.5-14.5) Platelet Count 234 x10^3/uL (140-400) Neutrophils (%) (Auto) 67 % (31-73) Lymphocytes (%) (Auto) 21 % (24-48) L Monocytes (%) (Auto) 9 % (0-9) Eosinophils (%) (Auto) 2 % (0-3) Basophils (%) (Auto) 1 % (0-3) Neutrophils # (Auto) 6.0 x10^3uL (1.8-7.7) Lymphocytes # (Auto) 1.9 x10^3/uL (1.0-4.8) Monocytes # (Auto) 0.8 x10^3/uL (0.0-1.1) Eosinophils # (Auto) 0.1 x10^3/uL (0.0-0.7) Basophils # (Auto) 0.1 x10^3/uL (0.0-0.2) Sodium Level 134 mmol/L (136-145) L Potassium Level 3.9 mmol/L (3.5-5.1) Chloride Level 97 mmol/L (98-107) L Carbon Dioxide Level 26 mmol/L (21-32) Anion Gap 11 (6-14) Blood Urea Nitrogen 11 mg/dL (8-26) Creatinine 0.9 mg/dL (0.7-1.3) Estimated GFR (Cockcroft-Gault) 95.5 BUN/Creatinine Ratio 12 (6-20) Glucose Level 106 mg/dL (70-99) H Calcium Level 9.0 mg/dL (8.5-10.1) Total Bilirubin 0.7 mg/dL (0.2-1.0) Aspartate Amino Transferase (AST) 35 U/L (15-37) Alanine Aminotransferase (ALT) 31 U/L (16-63) Alkaline Phosphatase 74 U/L (46-116) Creatine Kinase 387 U/L (39-308) H Total Protein 8.2 g/dL (6.4-8.2) Albumin 4.3 g/dL (3.4-5.0) Albumin/Globulin Ratio 1.1 (1.0-1.7) Phenytoin (Dilantin) Level 24.4 mcg/mL (10.0-20.0) H Phenytoin Last Dose Date Unknown Phenytoin Last Dose Time Unknown Vital Signs: Vital Signs Date Time Temp Pulse Resp B/P (MAP) Pulse Ox O2 Delivery O2 Flow Rate FiO2 08/30/19 14:59 98.6 98 16 176/98 (124) 96 Room Air EKG: EKG: [] Radiology/Procedures: Radiology/Procedures: No signs of head trauma, no URI symptoms, no indication for imaging at this time Impressions: Concern for uncontrolled seizure in well-known, medication complaint seizure patient-recent increased stress.heat exertion (warmer weather-works outside). Also presents with asymptomatic hypertension. Has no signs of head injury, has no neurologic deficits is [id number] any chest pain or dyspnea, no end organ damage or renal injury on labs. Was given oral Keppra in the ED. Labs wnl-cpk slightly elevated. Phenytoin level (is nonspecific) -has no nystagmus or bradycardia, low suspicion for toxicity. Strict ED return precautions for persistent seizure or confusion or neurologic deficit. Encouraged outpatient neurology follow-up. I spoken with the patient and her caregivers. I explained the patient's condition, diagnoses and treatment plan based on the information available to me at this time. I have answered the patient and her caregiver's questions and addressed any concerns. The patient and her caregivers have a good understanding of patient's diagnosis, condition and treatment plan as can be expected at this point. Vital signs have been stable. Patient's condition is stable and appropriate for discharge from the emergency department. Patient will pursue further outpatient evaluation with primary care physician or other designated or consulting physician as outlined in the discharge instructions. The patient and/or caregivers are agreeable to this plan of care and follow-up instructions have been explained in detail. The patient and/or caregivers have received these instructions in written form and have expressed an understanding of the discharge instructions. The patient and/or caregivers are aware that any significant change of condition or worsening of symptoms should prompt immediate return to this or the closest emergency department or call to 911. Course & Med Decision Making: Course & Med Decision Making Pertinent Labs and Imaging studies reviewed. (See chart for details) [] Dragon Disclaimer: Dragon Disclaimer: This electronic medical record was generated, in whole or in part, using a voice recognition dictation system. Departure Departure: Impression: Primary Impression: Seizure Disposition: 01 HOME, SELF-CARE Condition: STABLE Referrals: LALO JESUS MD (PCP) Patient Instructions: Hypertension, Seizure, Adult JIAN CUNNINGHAM DO August 30, 2019 16:38
[2019-08-30 16:42] VITALS: BP 166/86
== END 2019-08-30 16:42 | disposition home or self-care (01) ==
LOC: ER 14:54
DX: G40.909 Epilepsy, unspecified, not intractable, without status epilepticus (principal); I10 Essential (primary) hypertension; F17.200 Nicotine dependence, unspecified, uncomplicated
CPT/HCPCS: 36415; 80053; 80185; 82550; 85025; 99283

== ENCOUNTER 2019-11-19 10:32 | Emergency (ER) | payer SELFPAY ==
[~2019-11-19] VITALS: Ht 188 cm; Wt 145.5 kg
[2019-11-19 10:36] VITALS: BP 164/78
[2019-11-19] MEDS ORDERED: IV NORMAL SALINE 1,000ML 1,000 ML IV ONE (10:45)
[2019-11-19 11:07] LABS: BASO # 0.1 x10^3/uL (0.0-0.2); BASO % 1 % (0-3); EOS # 0.2 x10^3/uL (0.0-0.7); EOS % 2 % (0-3); HEMOGLOBIN 15.4 g/dL (13.0-17.5); LYMPH # 2.2 x10^3/uL (1.0-4.8); LYMPH % 28 % (24-48); MEAN CORPUSCULAR HEMOGLOBIN 34 pg (25-35); MEAN CORPUSCULAR HGB CONC 35 g/dL (31-37); MEAN CORPUSCULAR VOLUME 98 fL (79-100); MONO # 0.8 x10^3/uL (0.0-1.1); MONO % 10 % (0-9); NEUT # 4.6 x10^3uL (1.8-7.7); NEUT % 59 % (31-73); PLATELET COUNT 230 x10^3/uL (140-400); RED BLOOD COUNT 4.51 x10^6/uL (4.30-5.70); RED CELL DISTRIBUTION WIDTH 13.7 % (11.5-14.5); WHITE BLOOD COUNT 7.9 x10^3/uL (4.0-11.0)
--- NOTE | 2019-11-19 11:07 | PHYS DOC ---
Past History Past Medical History: Hypertension, Seizure, Other Past Surgical History: No Surgical History Smoking: Quit Greater Than 1 Year Alcohol Use: None Drug Use: None General Adult EDM: Chief Complaint: SEIZURE HPI: HPI: 34-year-old male presents with after seizure. He works at the local [employer]. He had a seizure with collapse that was witnessed by the patron. They reported that the last couple of minutes, but the patient states his seizures usually are just several seconds. He is feeling completely at baseline at this time. He does admit that he fell and hit the back left side of his head. He has hematoma at this location. He denies numbness, tingling, altered sensation. He denies any other injuries. No recent fevers or chills. He does follow regularly for his seizures with neurology. Review of Systems: Review of Systems: Constitutional: Denies fever or chills Eyes: Denies change in visual acuity HENT: Denies nasal congestion or sore throat Respiratory: Denies cough or shortness of breath Cardiovascular: Denies chest pain or edema GI: Denies abdominal pain, nausea, vomiting, bloody stools or diarrhea : Denies dysuria Musculoskeletal: Denies back pain or joint pain Integument: Denies rash Neurologic: Seizure. Denies headache, focal weakness or sensory changes Endocrine: Denies polyuria or polydipsia Lymphatic: Denies swollen glands Psychiatric: Denies depression or anxiety Heart Score: Risk Factors: Risk Factors: DM, Current or recent (<one month) smoker, HTN, HLP, family history of CAD, obesity. Risk Scores: Score 0 - 3: 2.5% MACE over next 6 weeks - Discharge Home Score 4 - 6: 20.3% MACE over next 6 weeks - Admit for Clinical Observation Score 7 - 10: 72.7% MACE over next 6 weeks - Early Invasive Strategies Current Medications: Current Meds: Current Medications Medications (Trade) Dose Ordered Sig/Broderick Start Time Stop Time Status Last Admin Dose Admin Sodium Chloride 1,000 ml @ 1,000 mls/hr 1X ONCE 11/19/19 10:45 11/19/19 11:44 Allergies: Allergies: Allergies Coded Allergies Type Severity Reaction Last Updated Verified No Known Drug Allergies 08/09/16 No Physical Exam: PE: Constitutional: Well developed, morbidly obese, well nourished, no acute distress, non-toxic appearance. [] HENT: 4 cm x 4 cm superficial hematoma of the left occipital scalp. Normocephalic, bilateral external ears normal, oropharynx moist, no oral exudates, nose normal. [] Eyes: PERRLA, EOMI, conjunctiva normal, no discharge. [] Neck: Normal range of motion, no tenderness, supple, no stridor. [] Cardiovascular: Heart rate regular rhythm, no murmur [] Lungs & Thorax: Bilateral breath sounds clear to auscultation [] Abdomen: Bowel sounds normal, soft, no tenderness, no masses, no pulsatile masses. [] Skin: Warm, dry, no erythema, no rash. [] Back: No tenderness, no CVA tenderness. [] Extremities: No tenderness, no cyanosis, no clubbing, ROM intact, no edema. [] Neurologic: Alert and oriented X 3, normal motor function, normal sensory function, no focal deficits noted. [] Psychologic: Affect normal, judgement normal, mood normal. [] Current Patient Data: Vital Signs: Vital Signs Date Time Temp Pulse Resp B/P (MAP) Pulse Ox O2 Delivery O2 Flow Rate FiO2 11/19/19 10:36 98.5 100 14 164/78 (106) 98 Room Air EKG: EKG: [] Radiology/Procedures: Radiology/Procedures: [] Impressions: CT head without contrast PQRS statement: CT scans at this facility use dose reduction including either automated exposure control, iterative reconstructions, and /or weight based radiation dosing via mA and kV modification when appropriate to reduce radiation dose to as low as reasonably achievable. HISTORY: Seizure. Fall. FINDINGS: Comparison is made to MRI brain from March 28, 2013. There is marked ventriculomegaly of the lateral and third ventricles relative to the fourth ventricle which is nondilated similar to the prior MRI study suggesting chronic obstructive hydrocephalus perhaps due to cerebral aqueduct stenosis. There is also compression or atrophy of the cerebral white matter surrounding the dilated lateral ventricles which could also contribute to ventriculomegaly may be a consequence of an in utero ischemic injury with periventricular leukomalacia and resultant ventriculomegaly. No obvious brain edema surrounding the dilated ventricles. No intracranial hemorrhage. No mass. No infarction. Left parietal scalp 1 cm in thickness hematoma towards the vertex. Orbits, mastoids and bones are unremarkable. IMPRESSION: 1. No acute intracranial CT abnormality. 2. Left parietal scalp hematoma. No skull fracture. 3. 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 Electronically signed by: Racquel Serrano MD (11/19/2019 11:25 AM) [id number] DICTATED AND SIGNED BY: RACQUEL SERRANO MD DATE: 11/19/19 1125 CC: CHRISTOPHER YAO DO; LALO JESUS MD ~ Course & Med Decision Making: Course & Med Decision Making Pertinent Labs and Imaging studies reviewed. (See chart for details) The patient's labs are unremarkable. His head CT is negative for acute fi ndings. He is feeling like he is at baseline and is comfortable with going home. He will follow-up with his neurologist. He is stable for discharge at this time. [] Dragon Disclaimer: Dragon Disclaimer: This electronic medical record was generated, in whole or in part, using a voice recognition dictation system. Departure Departure: Impression: Primary Impression: Seizure Disposition: 01 HOME/RESIDENCE PRIOR TO ADM Condition: STABLE Referrals: LALO JESUS MD (PCP) Patient Instructions: Seizure, Adult Justification of Admission: Justification of Admission: Justification of Admission Dx: N/A CHRISTOPHER YAO DO Nov 19, 2019 11:07
--- NOTE | 2019-11-19 11:28 | RAD ---
CT head without contrast PQRS statement: CT scans at this facility use dose reduction including either automated exposure control, iterative reconstructions, and /or weight based radiation dosing via mA and kV modification when appropriate to reduce radiation dose to as low as reasonably achievable. HISTORY: Seizure. Fall. FINDINGS: Comparison is made to MRI brain from March 28, 2013. There is marked ventriculomegaly of the lateral and third ventricles relative to the fourth ventricle which is nondilated similar to the prior MRI study suggesting chronic obstructive hydrocephalus perhaps due to cerebral aqueduct stenosis. There is also compression or atrophy of the cerebral white matter surrounding the dilated lateral ventricles which could also contribute to ventriculomegaly may be a consequence of an in utero ischemic injury with periventricular leukomalacia and resultant ventriculomegaly. No obvious brain edema surrounding the dilated ventricles. No intracranial hemorrhage. No mass. No infarction. Left parietal scalp 1 cm in thickness hematoma towards the vertex. Orbits, mastoids and bones are unremarkable. IMPRESSION: 1. No acute intracranial CT abnormality. 2. Left parietal scalp hematoma. No skull fracture. 3. 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 Electronically signed by: Raul Serrano MD (11/19/2019 11:25 AM) [id number]
[2019-11-19 12:03] LABS: ALBUMIN 4.5 g/dL (3.4-5.0); ALBUMIN/GLOBULIN RATIO 1.3 (1.0-1.7); CALCIUM 9.2 mg/dL (8.5-10.1)
[2019-11-19 12:04] LABS: CREATININE 0.7 mg/dL (0.7-1.3); GFR 127.6; POTASSIUM 3.8 mmol/L (3.5-5.1); TOTAL BILIRUBIN 0.8 mg/dL (0.2-1.0)
== END 2019-11-19 12:28 | disposition home or self-care (01) ==
LOC: ER 10:32
DX: S00.03XA Contusion of scalp, initial encounter (principal); R56.9 Unspecified convulsions; I10 Essential (primary) hypertension; Z87.891 Personal history of nicotine dependence; W18.09XA Striking against other object with subsequent fall, initial encounter; Y93.89 Activity, other specified; Y92.89 Other specified places as the place of occurrence of the external cause; Y99.8 Other external cause status
CPT/HCPCS: 36415; 70450; 80053; 85025; 99284-25

== ENCOUNTER → 2019-12-24 | Outpatient (CLI) | payer SELFPAY ==
[2019-12-24 08:58] LABS: PHENY 22.8 mcg/mL (10.0-20.0)
== END | disposition home or self-care (01) ==
LOC: LAB 08:16
PROVIDERS: ATTEND Psychiatry & Neurology Neurology
DX: R56.9 Unspecified convulsions (principal)
CPT/HCPCS: 36415; 80185

== ENCOUNTER 2020-08-25 14:45 | Emergency (ER) | payer OTHER ==
[~2020-08-25] VITALS: Ht 188 cm; Wt 145.5 kg
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
[2020-08-25 15:24] LABS: BASO # 0.1 x10^3/uL (0.0-0.2); BASO % 1 % (0-3); EOS # 0.1 x10^3/uL (0.0-0.7); EOS % 2 % (0-3); HEMATOCRIT 43.2 % (39.0-53.0); HEMOGLOBIN 14.7 g/dL (13.0-17.5); LYMPH # 1.8 x10^3/uL (1.0-4.8); LYMPH % 22 % (24-48); MEAN CORPUSCULAR HEMOGLOBIN 34 pg (25-35); MEAN CORPUSCULAR HGB CONC 34 g/dL (31-37); MEAN CORPUSCULAR VOLUME 99 fL (79-100); MONO # 0.7 x10^3/uL (0.0-1.1); MONO % 8 % (0-9); NEUT # 5.6 x10^3uL (1.8-7.7); NEUT % 67 % (31-73); PLATELET COUNT 245 x10^3/uL (140-400); RED BLOOD COUNT 4.37 x10^6/uL (4.30-5.70); RED CELL DISTRIBUTION WIDTH 13.3 % (11.5-14.5); WHITE BLOOD COUNT 8.3 x10^3/uL (4.0-11.0)
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
[2020-08-25 15:34] LABS: CALCIUM 8.4 mg/dL (8.5-10.1); CREATININE 0.9 mg/dL (0.7-1.3)
[2020-08-25 15:40] LABS: ALBUMIN/GLOBULIN RATIO 1.1 (1.0-1.7); TOTAL BILIRUBIN 0.4 mg/dL (0.2-1.0); TOTAL PROTEIN 7.6 g/dL (6.4-8.2)
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
--- NOTE | 2020-08-25 15:54 | EKG ---
[address] [address] Test Date: 2020-08-25 Test Time: 15:06:33 Pat Name: KEEGAN ESTEBAN Department: Room: Gender: M Network Control Operator: QUE : 1985 Requested By: CHRISTOPHER YAO Order Number: [id number] Reading MD: Measurements Intervals [place] Rate: 93 P: 48 HI: 174 QRS: 22 QRSD: 86 T: 54 QT: 330 QTc: 413 Interpretive Statements SINUS RHYTHM NORMAL ECG RI6.02 No previous ECG available for comparison
[2020-08-25 16:23] LABS: BARBITURATES NEG (NEG); BENZODIAZEPINES NEG (NEG); CANNABINOIDS NEG (NEG); COCAINE NEG (NEG); METHADONE NEG (NEG); OPIATES NEG (NEG); PHENCYCLIDINE NEG (NEG)
[2020-08-25] MEDS ORDERED: levETIRAcetam 500 MG TABLET PO STA (16:25)
[2020-08-25 16:26] LABS: AMPHETAMINE/METHAMPHETAMINE NEG (NEG)
[2020-08-25 16:31] LABS: CLARITY,URINE CLEAR; COLOR,URINE YELLOW
[2020-08-25 16:32] LABS: BILIRUBIN,URINE NEG (NEG); GLUCOSE,URINE NEG (NEG)
[2020-08-25 16:33] LABS: BACTERIA,URINE 0 /HPF (0-FEW); NITRITE,URINE NEG (NEG); RBC,URINE 0 /HPF (0-2); SQUAMOUS EPITHELIAL CELL,UR MANY /LPF; UROBILINOGEN,URINE 0.2 mg/dL (0.2 mg/dL); WBC,URINE 0 /HPF (0-4)
[2020-08-25 16:52] VITALS: BP 170/91
== END 2020-08-25 16:48 | disposition home or self-care (01) ==
LOC: ER 14:49
DX: S01.111A Laceration without foreign body of right eyelid and periocular area, initial encounter (principal); R56.9 Unspecified convulsions; I10 Essential (primary) hypertension; Z87.891 Personal history of nicotine dependence; V89.2XXA Person injured in unspecified motor-vehicle accident, traffic, initial encounter; Y93.I9 Activity, other involving external motion; Y92.89 Other specified places as the place of occurrence of the external cause; Y99.8 Other external cause status
CPT/HCPCS: 12011; 36415; 70450; 71045; 72125; 80053; 80307; 81001; 84484; 85025; 93005; 99285; G0480